=== PATIENT | male | born 1950 | race Caucasian/White ===

== ENCOUNTER → 2020-10-02 08:33 | Outpatient (BNVA) | payer BC, SELFPAY | PROVIDERS: PCP Family Medicine; Visit Provider Urology ==

== ENCOUNTER → 2021-05-03 09:50 | Outpatient (BNVA) | payer BC, SELFPAY | PROVIDERS: PCP Family Medicine; Visit Provider Urology ==

== ENCOUNTER → 2021-11-05 08:48 | Outpatient (BNVA) | payer BC, SELFPAY | PROVIDERS: PCP Family Medicine; Visit Provider Urology | DX: N40.1 Benign prostatic hyperplasia with lower urinary tract symptoms (principal) ==

== ENCOUNTER 2022-05-08 08:39 | Outpatient (AMB) | payer BC, SELFPAY ==
--- NOTE | 2022-05-05 14:07 | A.OFFVIS_ITS ---
Intake Intake Visit Reasons: 6 Month PSA(PSA?) Intake Note: Patient is Present for Telephone PSA Follow Up Urology Medication: Finasteride Blood Thinner: Allergies No Known Allergies Allergy (Verified 05/05/22 14:09) HPI HPI Comments History of Present Illness Details Walter GARDNER is a very pleasant male. They are a patient Dr Randolph. They are seen in the office today for the following urologic conditions. - elevated PSA Telemedicine evaluation 15 minute consultation [employer] arturo Video attempted Gradual drop in PSA on finasteride Has moved from 5.3 to 4.7 Elevated PSA/Abnormal NELLA: He presents for further evaluation of elevated PSA, - PSA fell after infection has resolved - he is happy and understands will need a future check. Current management is finasteride. Laboratory investigations include 2015 2.6 2017 4.6 04/22 - 6.4 06/22 3.6 Free 1.2 - 06/24 4.0, 04/25 5.0, 10/25 5.3, 04/26 4.7 38% Individualized Prostate Cancer Risk Calculator 5-10% high risk, Discussion regarding TRUS biopsy performed, Would like to continue with observation and understands and accepts the risks of a possible delay in diagnosis. Therapeutic plan will be continued surveillance. Gross Hematuria: CT with isointense cyst No evidence of lesion with enhancement Can review imaging in 12m. The patient presents with complaint of gross hematuria throughout urinartion - happened for 4 days and resolved in 09/20. The hematuria has cleared after medication They are experiencing associated symptoms of dysuria No frequency No urgency No Radiographic imaging includes 08/23 , CT scan ? renal lesion 10/21 , renal US ? lesion [facility] Medical History Chronic kidney disease Elevated PSA Gross hematuria Microscopic hematuria Renal cyst, acquired Renal lesion Family History Father No problems noted. Mother No problems noted. Social History Patient Tobacco Use Status: Never used Tobacco Review of Systems Const All systems reviewed & are unremarkable except as noted in HPI and below Reports no additional complaints Resp Reports no additional complaints GI Reports no additional complaints Reports as per HPI Musc Reports no additional complaints Physical Exam Telemedicine evaluation Appropriate responses Regular breathing rate and rhythm HEENT Head: Yes normal to inspection Ears: hearing grossly normal bilaterally Eyes General: appearance normal, both eyes and all related structures Neck Neck: Yes normal visual inspection Chest Chest palpation & inspection: normal inspection of the chest Resp Effort & Inspection: normal respiratory effort and able to speak in complete sentences Assessment & Plan Assessment & Plan (1) BPH w urinary obs/LUTS: Code(s): N40.1 - Benign prostatic hyperplasia with lower urinary tract symptoms; N13.8 - Other obstructive and reflux uropathy (2) Elevated PSA: Code(s): R97.20 - Elevated prostate specific antigen [PSA] Plan Six-month follow-up Patient Instructions: Imaging studies, laboratory and physical exam results were discussed and reviewed in detail. No major barriers to patient understanding were identified. An opportunity to ask questions regarding the treatment plan was provided. All questions were answered. The patient expressed understanding and agreement with the above treatment plan. The patient is aware they should contact our office by phone for worsening of their current condition or the appearance of new urologic symptoms. Compliance is encouraged with any medications and followup testing that is ordered. It is a privilege to participate in the urologic care of your patient. If you have any questions or concerns regarding treatment for the above conditions, or other urologic issues, please do not hesitate to contact me. The office telephon e contact is [phone]. This note is constructed using voice recognition software. While every effort has been made to ensure accuracy hat stock laminating machine operator errors may have been included. Yours sincerely, Dr Cleve Medina MD, [facility] - Urology Providers of Expert, Compassionate Care for the Genitourinary System Telehealth Telehealth Location of provider rendering services: practice address Location of patient: address on file Patient Identification confirmed using: Name, : Yes Telehealth method: voice only Patient verbally consented to treatment: Yes Patient verbally consented to billing insurance company: Yes Patient informed of any privacy concerns related to visit: Yes Coding Level of Care Code Tele Est Pt Level 3 (35012) Diagnoses BPH w urinary obs/LUTS N40.1; N13.8 Elevated PSA R97.20
== END 2023-04-15 11:49 | disposition home or self-care (01) ==
PROVIDERS: PCP Family Medicine; Visit Provider Urology
DX: N40.1 Benign prostatic hyperplasia with lower urinary tract symptoms (principal); N13.8 Other obstructive and reflux uropathy; R97.20 Elevated prostate specific antigen [PSA]
CPT/HCPCS: 99443; 99499

== ENCOUNTER → 2022-05-08 08:39 | Outpatient (BNVA) | payer BC, SELFPAY | PROVIDERS: PCP Family Medicine; Visit Provider Urology | DX: Z13.89 Encounter for screening for other disorder (principal) ==

== ENCOUNTER 2024-05-25 13:55 | Outpatient (AMB) | payer BC, SELFPAY ==
--- NOTE | 2024-05-25 14:08 | A.OFFVIS_ITS ---
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 They are a patient Dr Randolph. They are seen in the office today for the following urologic conditions. - elevated PSA - lower urinary tract symptoms PSA had dropped on finasteride Slight rise in PSA off finasteride Testosterone normal Restart finasteride does have bladder outlet of symptoms NELLA enlarged prostate Discussed importance of vaccines Elevated PSA/Abnormal NELLA: He presents for further evaluation of elevated PSA, - PSA fell after infection has resolved - he is happy and understands will need a future check. Current management is finasteride. Laboratory investigations include 2015 2.6 2017 4.6, 04/22 - 6.4, 06/22 3.6 Free 1.2, 06/24 4.0, 04/25 5.0, 10/25 5.3, 04/26 4.7 38%, 04/28 6.1 T 490 Individualized Prostate Cancer Risk Calculator 5-10% high risk, Discussion regarding TRUS biopsy performed, Would like to continue with observation and understands and accepts the risks of a possible delay in diagnosis. Gross Hematuria: CT with isointense cyst No evidence of lesion with enhancement Can review imaging in 12m. The patient presents with complaint of gross hematuria throughout urinartion - happened for 4 days and resolved in 09/20. The hematuria has cleared after medication They are experiencing associated symptoms of dysuria No frequency No urgency No Radiographic imaging includes 08/23 , CT scan ? renal lesion 10/21 , renal US ? lesion PFSH Medical History Chronic kidney disease Elevated PSA Renal cyst, acquired Gross hematuria Renal lesion Microscopic hematuria Family History Father No problems noted. Mother No problems noted. Social History Patient Tobacco Use Status: Never used Tobacco Review of Systems Const Denies chills and Denies fever(s) Card Reports no additional complaints and Denies syncope Resp Denies cough GI Denies abdominal pain and Denies heartburn Reports as per HPI and Denies change in libido Neuro Denies syncope Psych Denies change in libido Endo Denies change in libido Physical Exam Const General: cooperative, healthy appearing, comfortable and no acute distress Orientation/consciousness: patient oriented x3 HEENT Face and sinus: Yes normal facial exam Mouth: moist mucous membranes Neck Neck: Yes normal visual inspection, Yes full ROM and Yes trachea midline Chest Chest palpation & inspection: normal inspection of the chest Resp Effort & Inspection: normal respiratory effort, able to speak in complete sentences and no respiratory distress GI Inspection: Yes normal to inspection Rectal Exam - Male: Yes normal sphincter tone and Yes prostate normal Male General Exam: Yes normal external exam Penis: normal penis and circumcised Meatus: meatus normal Scrotum: scrotum normal Testes: Testes normal Back/Spine/Pelvis Cervical Spine: normal cervical lordosis Thoracic/Lumbar Spine: thoracic and lumbar spine normal to inspection Skin General skin exam: no rashes or lesions noted Neuro General: patient oriented x3, gait normal, tone normal and moves all extremities Extrem General: Yes normal to inspection and Yes capillary refill normal Assessment & Plan Assessment & Plan (1) Elevated PSA: Code(s): R97.20 - Elevated prostate specific antigen [PSA] Category: Medical (2) BPH w urinary obs/LUTS: Code(s): N40.1 - Benign prostatic hyperplasia with lower urinary tract symptoms; N13.8 - Other obstructive and reflux uropathy Category: Medical Plan Six-month follow-up Orders: Orders Prostate Specific Antigen 6 Months R97.20 - Elevated prostate specific antigen [PSA] US bladder Today R39.12 - Poor urinary stream, R97.20 - Elevated prostate specific antigen [PSA] Medications: Refilled finasteride 5 mg PO DAILY 90 days 90 tabs 1RF C61 - Malignant neoplasm of prostate, N13.8 - Other obstructive and reflux uropathy, N40.1 - Benign prostat ic hyperplasia with lower urinary tract symptoms Patient Instructions: Imaging studies, laboratory and physical exam results were discussed and reviewed in detail. No major barriers to patient understanding were identified. An opportunity to ask questions regarding the treatment plan was provided. All questions were answered. The patient expressed understanding and agreement with the above treatment plan. The patient is aware they should contact our office by phone for worsening of their current condition or the appearance of new urologic symptoms. Compliance is encouraged with any medications and followup testing that is ordered. It is a privilege to participate in the urologic care of your patient. If you have any questions or concerns regarding treatment for the above conditions, or other urologic issues, please do not hesitate to contact me. The office telephone contact is [phone]. This note is constructed using voice recognition software. While every effort has been made to ensure accuracy commercial baker helper errors may have been included. Yours sincerely, Dr Cleve Medina MD, [facility] - Urology Providers of Expert, Compassionate Care for the Genitourinary System Coding Level of Care Code Est Pt Level 4 (97421) Diagnoses Elevated PSA R97.20 BPH w urinary obs/LUTS N40.1; N13.8
== END 2024-05-25 14:56 | disposition home or self-care (01) ==
PROVIDERS: PCP Family Medicine; Visit Provider Urology
DX: R97.20 Elevated prostate specific antigen [PSA] (principal); N40.1 Benign prostatic hyperplasia with lower urinary tract symptoms; N13.8 Other obstructive and reflux uropathy
CPT/HCPCS: 99214

== ENCOUNTER 2024-11-08 13:04 | Outpatient (REF) | payer BC, SELFPAY ==
--- NOTE | ~2024-11-08 | US_ITS ---
EXAMINATION: US BLADDER HISTORY: R39.12 - Poor urinary stream COMPARISON: There are no prior studies for comparison. FINDINGS: Sonographic examination of the urinary bladder was performed before and after voiding. Before voiding, the urinary bladder measured 8.5 x 6.8 x 7.0 cm, for an estimated volume of233 mL. After voiding, the urinary bladder measured 4.8 x 4.9 x 6.4, for an estimated volume of 78 mL. No intrinsic bladder abnormality is identified. Bilateral ureteral jets are not identified. The prostate measures 4.5 x 4.8 x 5.1 cm. US/US bladder IMPRESSION: Post void bladder residual of 78 mL. No intrinsic bladder abnormality is identified. Electronically signed by: Harish Wilson MD 11/08/2024 01:55 PM EDT
--- OUTSIDE RECORDS SUMMARY | 2024-11-08 14:19 | XMS_ITS ---
Author Name [facility] Organization Unknown Problems Problem Status Onset Date Problem Type Date of Resoluti on Source Influenza A active EncounterDiagnosisAct CCT Acute cough active EncounterDiagnosisAct CCT Encounters Encounter Type Encounter Reason Primary Diagnosis Location Date Ambulatory Acute cough Acute cough [facility] 07/09/2023 Care Team Organization Name Specialty Phone Email Start Date End Da te [facility] 07/26/2023 [facility] PCP Interchange Agent 07/26/2023 09/21/2024 [facility] PCP,No Primary Care 07/09/2023 09/21/2024 [facility] NO PCP Primary Care 07/09/2023 07/09/2023
--- OUTSIDE RECORDS SUMMARY | 2024-11-08 14:19 | XMS_ITS | Clinical Summary ---
Author Organization [facility] Address [address] [place] [address] Phone Care Team Providers Care Loader Helper Sorting Yard Name Role Phone Walter Randolph Re DIALLO Primary Care Provider [phone] Allergies No known active allergies Medications cyanocobalamin (VITAMIN B-12) 1000 MCG/ML injection Comments: Filled Date: Nov 23 2011 12:00AM Duration: 60 Active amLODIPine (NORVASC) 2.5 MG tablet TAKE 1 TABLET(2.5 MG) BY MOUTH 1 TIME EACH DAY 30 tablet 11 09/07/2024 Active Active Problems Problem Noted Date Diagnosed Date Psoriatic arthritis 05/20/2021 Cyst of kidney 05/20/2021 Hypertension 11/22/2020 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 11/21/2020 Hyperparathyroidism 11/21/2020 Microscopic hematuria 11/21/2020 Renal stone 11/21/2020 Resolved Problems Problem Noted Date Diagnosed Date Resolved Date Hematuria, not otherwise specified 11/21/2020 05/19/2022 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 11/21/2020 11/22/2020 Encounters Date Type Department Care Team Description 09/07/2024 Refill [facility] [address] [place] [phone] Tomas Morejon MD 09/07/2024 Refill [facility] [address] [place] [phone] Tomas Morejon MD from Last 3 Months Family History Medical History Relation Comments Cancer Father Relation Status Comments Father Mother Social History Tobacco Use Types Packs/Day Years Used Date Smoking Tobacco: Never Smokeless Tobacco: Never Tobacco Cessation:Counseling Given: Not Answered Alcohol Use Standard Drinks/Week Comments Yes 0 (1 standard drink = 0.6 oz pure alcohol) Alcoholic Drinks/day: Occasional social drink Sex and Gender Information Value Date Recorded Sex Assigned at Not on file Legal Sex Male 5:06 PM EST Gender Identity Not on file Sexual Orientation Not on file Last Filed Vital Signs Vital Sign Reading Time Taken Comments Blood Pressure 127/98 05/10/2024 9:22 AM EST Pulse 88 05/10/2024 9:22 AM EST Temperature - - Respiratory Rate - - Oxygen Saturation 97% 05/10/2024 9:22 AM EST Inhaled Oxygen Concentration - - Weight 91.1 kg (200 lb 12.8 oz) 05/10/2024 9:22 AM EST Height 180.3 cm (5' 11 ) 05/10/2024 9:22 AM EST Body Mass Index 28.01 05/10/2024 9:22 AM EST Plan of Treatment Upcoming Encounters Date Type Department Care Team (Late st Contact Info) Description 05/10/2025 9:00 AM EST Office Visit [facility] [address] [phone] Tomas Morejon MD [address] [place] [phone] Health Maintenance Due Date Last Done Comments Pneumococcal Vaccine: 50+ Ye ars (1 of 2 - PCV) 11/12/1971 Colorectal Cancer Screening: Annual FOBT 2001 Colorectal Cancer Screening: Colonoscopy 2001 Colorectal Cancer Screening: Sigmoidoscopy 2001 Influenza Vaccine (Season Ended) 2025 Hepatitis B Vaccine Aged Out No longe r eligible based on patient's age to complete this topic Insurance [facility] Care Teams Loader Helper Sorting Yard Relationship Specialty Start Date End Date Walter Randolph DO [address] [place] [address] PCP - General 07/16/20
--- OUTSIDE RECORDS SUMMARY | 2024-11-08 14:19 | XMS_ITS | Clinical Summary ---
Author Organization [facility] Address [address] [place] [address] Care Team Providers Care Student Liaison Officer Name Role Phone Pcp, No Primary Care Provider Unavailabl e Allergies No known active allergies Medications Cyanocobalamin (B-12 Compliance Injection) 1000 MCG/ML Kit B-12 Compliance Act rich proMETHAZINE-de xtromethorphan (proMETHAZINE-D M) 6.25-15 MG/5ML syrupIndication s:Acute cough,Influenza A Take 5 mL by mouth nightly as needed for cough. 120 mL Active Social History Tobacco Use Types Packs/Day Years Used Date Smoking Tobacco: Never Assessed Sex and Gender Information Value Date Recorded Sex Assigned at Not on file Legal Sex Male 11:39 AM EST Gender Identity Not on file Sexual Orientation Not on file Last Filed Vital Signs Vital Sign Reading Time Taken Comments Blood Pressure 126/74 07/09/2023 11:50 AM EST Pulse 105 07/09/2023 11:50 AM EST Temperature 37.1 ??C (98.8 ??F) 07/09/2023 11:[address] Respiratory Rate - - Oxygen Saturation 96% 07/09/2023 11:50 AM EST Inhaled Oxygen Concentration - - Weight 90.7 kg (200 lb) 07/09/2023 11:50 AM EST Height - - Body Mass Index - - Plan of Treatment Health Maintenance Due Date Last Done Comments Hepatitis C Virus Screening 1950 DTaP/Tdap/Td Vaccines (1 - Tdap) 11/12/1971 Colonoscopy 1997 Pneumococcal Vaccines 50+ (1 of 1 - PCV) 2002 Zoster (Shingles) Vaccine (1 of 2) 2002 Influenza Vaccine 02/04/2024 COVID-19 Vaccine ( - 2023-2 5 season) 2024 RSV Vaccine 60 years and old er and Patients (1 - 1-dose 75+ series) 11/12/2027 Hepatitis B Vaccines Aged Out No long er eligible based on patient's age to complete this topic Insurance [facility] - HMO Care Teams Student Liaison Officer Relationship Specialty Start Date End Date Pcp, No PCP - General General Medicine 07/09/23
--- OUTSIDE RECORDS SUMMARY | 2024-11-08 14:19 | XMS_ITS | Clinical Summary ---
Author Organization [facility] Address [address] [place] [address] Care Team Providers Care Accounting Manager Name Role Phone Unavailable Primary Care Provider Unavailabl e Social History Tobacco Use Types Packs/Day Years Used Date Smoking Tobacco: Never Assessed Sex and Gender Information Value Date Recorded Sex Assigned at Not on file Legal Sex Male 2:32 PM EDT Gender Identity Not on file Sexual Orientation Not on file Plan of Treatment Health Maintenance Due Date Last Done Comments Hepatitis C Screening 1950 DTaP/Tdap/Td (1 - Tdap) 1970 Pneumococcal 50+ years (1 of 1 - PCV) 2002 Zoster (Shingrix) (1 of 2) 2002 COVID-19 Vaccine ( - 2023-2 5 season) 2024 Influenza (Season Ended) 2025 RSV (1 - 1-dose 75+ series) 11/12/2027 Abdominal Aorta Imaging Discontinued HPV Vaccine Aged Out No longer eligi ble based on patient's age to complete this topic Hep A Aged Out No longer eligi ble based on patient's age to complete this topic Hep B Aged Out No longer eligi ble based on patient's age to complete this topic Hib Aged Out No longer eligi ble based on patient's age to complete this topic Meningococcal ACWY Aged Out No longer eligible based on patient's age to complete this topic Zoster (Zostavax) Discontinued
[2024-11-08 15:07] LABS: Prostate Specific Antigen 6.61 ng/mL (<0.05-4.0)
== END 2024-11-08 13:05 | disposition home or self-care (01) ==
LOC: HO.US 13:04
PROVIDERS: PCP Family Medicine; Visit Provider Urology
DX: R39.12 Poor urinary stream (principal); R97.20 Elevated prostate specific antigen [PSA]; Z12.5 Encounter for screening for malignant neoplasm of prostate
CPT/HCPCS: 36415; 76857; 84153

== ENCOUNTER → 2024-11-08 13:07 | Outpatient (BNV) | payer BC, SELFPAY | PROVIDERS: PCP Family Medicine; Visit Provider Radiology Diagnostic Radiology | DX: R39.12 Poor urinary stream (principal) | CPT/HCPCS: 76857 ==

== ENCOUNTER 2024-11-22 14:16 | Outpatient (AMB) | payer BC, SELFPAY ==
--- NOTE | 2024-11-22 14:20 | A.OFFVIS_ITS ---
Intake Visit Reasons: 6m/US/PSA Intake Note: Pt presents to the office today for a 6 month follow up/US/PVR. PVR:30ml Allergies No Known Allergies Allergy (Verified 11/22/24 14:20) HPI Comments Details: Walter GARDNER is a very pleasant male. They are a patient Dr Randolph. They are seen in the office today for the following urologic conditions. - elevated PSA - lower urinary tract symptoms PSA has continued to rise Known large prostate from ultrasound NELLA enlarged prostate Six-month follow-up tele PSA Bladder instability with urgency Good stream Trial Cialis Elevated PSA/Abnormal NELLA: He presents for further evaluation of elevated PSA, - PSA fell after infection has resolved - he is happy and understands will need a future check. Current management is finasteride. Laboratory investigations include 2015 2.6 2017 4.6, 04/22 - 6.4, 06/22 3.6 Free 1.2, 06/24 4.0, 04/25 5.0, 10/25 5.3, 04/26 4.7 38%, 04/28 6.1 T 490, 11/27 6.6 Individualized Prostate Cancer Risk Calculator 5-10% high risk, Discussion regarding TRUS biopsy performed, Would like to continue with observation and understands and accepts the risks of a possible delay in diagnosis. Imaging - bladder US 60 gm Gross Hematuria: CT with isointense cyst No evidence of lesion with enhancement Can review imaging in 12m. The patient presents with complaint of gross hematuria throughout urinartion - happened for 4 days and resolved in 09/20. The hematuria has cleared after medication They are experiencing associated symptoms of dysuria No frequency No urgency No Radiographic imaging includes 08/23 , CT scan ? renal lesion 10/21 , renal US ? lesion [facility] Medical History Chronic kidney disease Elevated PSA Renal cyst, acquired Gross hematuria Renal lesion Microscopic hematuria Family History Father No problems noted. Mother No problems noted. Social History Patient Tobacco Use Status: Never used Tobacco Review of Systems Const Denies chills and Denies fever(s) Card Reports no additional complaints and Denies syncope Resp Denies cough GI Denies abdominal pain and Denies heartburn Reports as per HPI and Denies change in libido Neuro Denies syncope Psych Denies change in libido Endo Denies change in libido Physical Exam Const General: cooperative, healthy appearing, comfortable and no acute distress Orientation/consciousness: patient oriented x3 HEENT Face and sinus: Yes normal facial exam Mouth: moist mucous membranes Neck Neck: Yes normal visual inspection, Yes full ROM and Yes trachea midline Chest Chest palpation & inspection: normal inspection of the chest Resp Effort & Inspection: normal respiratory effort, able to speak in complete sentences and no respiratory distress GI Inspection: Yes normal to inspection Back/Spine/Pelvis Cervical Spine: normal cervical lordosis Thoracic/Lumbar Spine: thoracic and lumbar spine normal to inspection Skin General skin exam: no rashes or lesions noted Neuro General: patient oriented x3, gait normal, tone normal and moves all extremities Extrem General: Yes normal to inspection and Yes capillary refill normal Office Procedures Post Void Residual Post Residual Void Post Void Residual (PVR): 30 [id number]-[id number] Void Residual by ultrasound Results AMB Urinalysis, Automated UA Leukoctes 0 Riana/uL Last Edit by Vida Silverio CMA on 11/22/24 14:27 UA Nitrite Negative Last Edit by Vida Silverio CMA on 11/22/24 14:27 UA Urobilinogen 0.2 mg/dL Last Edit by Vida Silverio CMA on 11/22/24 14:27 UA Protein 15 mg/dL Last Edit by Vida Silverio CMA on 11/22/24 14:27 UA pH 6.0 Last Edit by Vida Silverio CMA on 11/22/24 14:27 UA Blood 0 Marty/uL Last Edit by Vida Silverio CMA on 11/22/24 14:27 UA Specific [place] 1.015 Last Edit by Vida Silverio CMA on 11/22/24 14:27 UA Ketone Negative Last Edit by Vida Silverio CMA on 11/22/24 14:27 UA Bilirubin 0 mg/dL Last Edit by Vida Silverio CMA on 11/22/24 14:27 UA Glucose 0 mg/dL Last Edit by Vida Silverio CMA on 11/22/24 14:27 Results Reviewed Results Reviewed: Laboratory Last Values Urine pH (Auto) 6.0 11/22/24 14:21 Specific [place] (Auto) 1.015 11/22/24 14:21 Urine Protein (Auto) 15 mg/dL 11/22/24 14:21 Glucose (UA)(Auto) 0 mg/dL 11/22/24 14:21 Urine Ketones (Auto) Negative 11/22/24 14:21 Urine Blood (Auto) 0 Marty/uL 11/22/24 14:21 Urine Nitrite (Auto) Negative 11/22/24 14:21 Urine Bilirubin (Auto) 0 mg/dL 11/22/24 14:21 Urine Urobilinogen (Auto) 0.2 mg/dL 11/22/24 14:21 Leukocyte Esterase (Auto) 0 Riana/uL 11/22/24 14:21 Assessment & Plan Assessment & Plan (1) Bladder instability: Code(s): N32.89 - Other specified disorders of bladder Category: Medical (2) Elevated PSA: Code(s): R97.20 - Elevated prostate specific antigen [PSA] Category: Medical (3) BPH w urinary obs/LUTS: Code(s): N40.1 - Benign prostatic hyperplasia with lower urinary tract symptoms; N13.8 - Other obstructive and reflux uropathy Category: Medical Plan Trial tadalafil bladder instability Six-month follow-up PSA Orders: Orders AMB Urinalysis Automated Today N13.8 - Other obstructive and reflux uropathy, N40.1 - Benign prostatic hyperplasia with lower urinary tract symptoms AMB Post Void Residual by ultrasound Today N13.8 - Other obstructive and reflux uropathy, N40.1 - Benign prostatic hyperplasia with lower urinary tract sympt oms PSA,Total (Free>4and<10) 6 Months R97.20 - Elevated prostate specific antigen [PSA] Medications: New tadalafil [id number] [facility] [id number] Member [id number] 5 mg PO DAILY 30 tabs 1RF bladder instability 30 days N32.89 - Other specified disorders of bladder Patient Instructions: This note is constructed using voice recognition software. While every effort has been made to ensure accuracy tube fitter errors may have been included. Imaging studies, laboratory and physical exam results were discussed and reviewed in detail. No major barriers to patient understanding were identified. An opportunity to ask questions regarding the treatment plan was provided. All questions were answered. The patient expressed understanding and agreement with the above treatment plan. The patient is aware they should contact our office by phone for worsening of their current condition or the appearance of new urologic symptoms. Compliance is encouraged with any medications and followup testing that is ordered. It is a privilege to participate in the urologic care of your patient. If you have any questions or concerns regarding treatment for the above conditions, or other urologic issues, please do not hesitate to contact me. The office telephone contact is [phone]. Sincerely, Dr Cleve Medina MD, [facility] - Urology Compassionate Specialist Care for the Genitourinary System Coding Level of Care Code Est Pt Level 4 (68516) Diagnoses Bladder instability N32.89 Elevated PSA R97.20 BPH w urinary obs/LUTS N40.1; N13.8 CPT Codes Post Residual Void - PVR CPT Code: 56280-[id number] Void Residual by ultrasound ([id number])
--- OUTSIDE RECORDS SUMMARY | 2024-11-22 15:42 | XMS_ITS | Clinical Summary ---
Author Organization [facility] Address [address] [place] [address] Care Team Providers Care Pre Planning Advisor Name Role Phone Unavailable Primary Care Provider [...] ( - 2023-2 5 season) 2024 Influenza (#1) 2024 RSV (1 - 1-dose 75+ series) 11/12/2027 [...]
--- OUTSIDE RECORDS SUMMARY | 2024-11-22 15:42 | XMS_ITS | Clinical Summary ---
Author Organization [facility] Address [address] [place] [address] Care Team Providers Care Vp Production Name Role Phone Pcp, No Primary Care [...] Zoster (Shingles) Vaccine (1 of 2) 2002 COVID-19 Vaccine (2023-2 5 season) 2024 Influenza Vaccine 02/03/2025 RSV Vaccine 60 years and old er and Patients (1 - 1-dose 75+ series) 11/12/2027 Hepatitis B Vaccines Aged Out No long er eligible based on patient's age to complete this topic Insurance [facility] - HMO Care Teams Vp Production Relationship Specialty Start Date End Date Pcp, No PCP - General General Medicine 07/09/23
--- OUTSIDE RECORDS SUMMARY | 2024-11-22 15:42 | XMS_ITS | Clinical Summary ---
Author Organization [facility] Address [address] [place] [address] [address] [place] [phone] Phone Care Team Providers Care Greens Planter Name Role Phone Walter Randolph Re DIALLO Primary Care Provider Allergies No known active allergies Medications cyanocobalamin [...] [place] [address] [place] [phone] Tomas Morejon MD 09/07/2024 Refill [facility] [address] [place] [phone] Tomas Morejon MD from Last 3 Months [...] Office Visit [facility] [address] [phone] Tomas Morejon MD [address] [place] [phone] Health Maintenance Due Date Last Done Comments Pneumococcal Vaccine: 50+ Ye ars (1 of 2 - PCV) 11/12/1971 Colorectal Cancer Screening: Annual FOBT 2001 Colorectal Cancer Screening: Colonoscopy 2001 Colorectal Cancer Screening: Sigmoidoscopy 2001 Influenza Vaccine (Season Ended) 2025 Hepatitis B Vaccine Aged Out No longe r eligible based on patient's age to complete this topic Insurance [facility] Care Teams Greens Planter Relationship Specialty Start Date End Date Walter Randolph DO [address] [place] [address] PCP - General 07/16/20
== END 2024-11-22 14:48 | disposition home or self-care (01) ==
LOC: HO.HUSH 14:16
PROVIDERS: PCP Family Medicine; Visit Provider Urology
DX: N32.89 Other specified disorders of bladder (principal); R97.20 Elevated prostate specific antigen [PSA]; N40.1 Benign prostatic hyperplasia with lower urinary tract symptoms; N13.8 Other obstructive and reflux uropathy
CPT/HCPCS: 99214

== ENCOUNTER → 2024-11-22 14:16 | Outpatient (BNVA) | payer BC, SELFPAY | PROVIDERS: PCP Family Medicine; Visit Provider Urology | DX: N13.8 Other obstructive and reflux uropathy (principal); N40.1 Benign prostatic hyperplasia with lower urinary tract symptoms | CPT/HCPCS: 51798; 81003 ==

== ENCOUNTER 2024-12-03 11:45 | Emergency (ER) | payer BC, SELFPAY ==
[2024-12-03 11:47] VITALS: BP 163/78; PULSE 64; RESP 18; TEMP 36.1; O2SAT 96; BMI 29.2
--- NOTE | 2024-12-03 11:47 | ED_ITS ---
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 Patient states the pain is located over his left lower back and does not radiate. He describes it as sharp, 7/10 in severity and describes his chronic back pain to be a 3 or 4/10 in severity. It improve with acetaminophen at home. There are no clear mitigating or exacerbating factors. He denies fevers, chills, recent procedures, cancer history, anticoagulation use, IV drug use, urinary retention, urinary or fecal incontinence, saddle anesthesia, new numbness or weakness of his legs or any inability to walk or difficulty walking. He denies syncopal or presyncopal episodes. He has not had any lightheadedness or exertional symptoms. He denies any other symptoms today including new urinary urgency or frequency, dysuria, hematuria or abdominal pain. Related Data Home Medications ?Medication ?Instructions ?Recorded ?Confirmed mecobalamin (vitamin B12) 1,000 1,000 mcg PO DAILY 10/02/20 mcg chewable tablet cyanocobalamin (vitamin B-12) 1,000 mcg IM 05/05/22 1,000 mcg/mL injection solution (Dodex) Previous Rx's ?Medication ?Instructions ?Recorded finasteride 5 mg tablet 5 mg PO DAILY 90 days #90 tabs 05/25/24 tadalafil 5 mg tablet 5 mg PO DAILY bladder instability 11/22/24 30 days #30 tabs lidocaine 5 % topical patch 1 patch topical DAILY #30 ea 12/03/24 Allergies Allergy/AdvReac Type Severity Reaction Status Date / Time No Known Allergies Allergy Verified 12/03/24 11:50 Review of Systems 2 Review of Systems: Yes all other systems are reviewed and are negative PMFSH Past Medical History Medical History Chronic kidney disease Elevated PSA Renal cyst, acquired Gross hematuria Renal lesion Microscopic hematuria Family History Family History Father No problems noted. Mother No problems noted. Social History Social History Patient Tobacco Use Status: Never used Tobacco Advance Directives: No Advance Directives Information Provided: Yes Physical Exam ED Vital Signs: Vital Signs - 24 hr 12/03/24 11:47 Temperature 97.0 F Pulse Rate 64 Respiratory Rate 18 Blood Pressure 163/78 H Pulse Oximetry 96 BMI result Body Mass Index 29.2 Constitutional: Alert, oriented, speaking in full sentences HEENT: Normocephalic, atraumatic. Moist mucous membranes Eyes: PERRL, EOMI Neck: Supple, nontender Chest: No chest wall tenderness Respiratory: Lungs clear to auscultation, no increased work of breathing Cardio: Regular rate and rhythm, no murmur, 2+ radial , PT and DP pulses symmetrically GI: Soft, nondistended, nontender Back: Normal range of motion, No midline or paraspinal tenderness to palpation. Skin: No rash, no lesions Neuro: Alert and oriented to person, place and time, moves all 4 extremities, no focal deficits, 5/5 strength in all muscle groups of the bilateral lower extremities, sensation fully intact, 1+ symmetrical patellar reflexes Extremities: No swelling or tenderness, full range of motion, unable to elicit pain with active and passive range of motion of the lower extremities. Negative straight leg or contralateral leg raise. Psych: Calm, alert and cooperative, appropriate behavior Course Course Course Narrative: RME performed by Smitha Barraza PA-C. Patient is a 74 year old assigned male at presenting to the emergency department with left low sided back pain over the last couple days. Patient states that over the last few days he has been having left sided low back pain. Detailed physical exam and review of systems are deferred to the leather etcher. EKG and labs ordered. Patient placed back in the waiting room pending room availability and results. Medical Decision Making Medical Decision Making [facility] Narrative: Patient here with low back pain. I do not suspect epidural abscess- no fevers, no recent instrumentation, no IVDA. I do not suspect fracture as there is no history of trauma, no history of malignancy, no chronic steroid use. I do not suspect epidural hematoma- again, no trauma, no anticoagulation. Cauda equina / cord compression is unlikely given ability to ambulate, lack of saddle anesthesia, ability to maintain bowel and bladder function. No signs and symptoms to suggest aortic dissection or ruptured AAA. Patient has had several days of pain And no manifestations of vascular compromise. At this point we will treat symptomatically for pain and ensure good follow up outpatient. Additionally, the patient has no concerning findings of work and urinalysis. I do not suspect prostatitis. Provided lidocaine patch and encouraged acetaminophen and continuation of Celebrex at home. Return precautions given to return immediately to the emergency department if there are any new neurologic symptoms. Patient and voice understanding. Admission/Observation Consideration of admission/observation: Escalation of care including admission/observation considered Lab Data MDM Lab Attestation statement: I reviewed the patient's lab results. 12/03/24 12:23 12/03/24 12:23 Labs: Lab Results 12/03/24 Range/Units 12:23 WBC 5.5 (4.8-10.8) X10*3/uL RBC 5.09 (4.60-5.80) X10*6/uL Hgb 15.1 (14.0-18.0) g/dl Hct 42.5 (42.0-52.0) % MCV 83.5 (80.0-98.0) fL MCH 29.7 (27.0-33.0) pg MCHC 35.5 (31.0-36.0) g/dl RDW 13.1 (11.0-16.0) % Plt Count 157 L (160-400) X10*3/uL MPV 8.7 L (9.4-12.4) fL Immature Gran % (Auto) 0.4 (0.0-0.4) % Neut % (Auto) 62.6 (45-73) % Lymph % (Auto) 21.4 (20-40) % [place] % (Auto) 8.9 (2-11) % Eos % (Auto) 6.2 H (0-4) % Baso % (Auto) 0.5 (0-2) % Lymph # (Auto) 1.2 (1.2-4.9) X10*3/uL [place] # (Auto) 0.5 (0.1-1.2) X10*3/uL Eos # (Auto) 0.3 (0.0-0.4) X10*3/uL Baso # (Auto) 0.0 (0.0-0.2) X10*3/uL Abs Immat Gran (auto) 0.02 (0.00-0.03) X10*3/uL Absolute Neuts (auto) 3.5 (2.0-8.3) x10*3/uL Absolute Nucleated RBC 0.000 (0.0-0.012) X10*3/uL Nucleated RBC % (auto) 0.0 (0.0-0.2) /100WBC Urine Color Yellow Urine Appearance Clear Urine pH 6.5 (5.0-9.0) Ur Specific [place] 1.010 (1.005-1.025) Urine Protein Negative (Neg-Trace) mg/dL Urine Glucose (UA) Negative (Negative) mg/dL Urine Ketones Negative (Negative) mg/dL Urine Blood Negative (Negative) Urine Nitrite Negative (Negative) Ur Leukocyte Esterase Negative (Negative) Independent Interpretation I performed an independent interpretation of an: EKG Interpretation: borderline sinus bradycardia at 59 beats per minute, normal axis, unremarkable intervals, no diagnostic ST or T-wave abnormalities, no prior for comparison. Discharge Plan Discharge Clinical Impression: Low back pain Qualifiers: Chronicity: acute Back pain laterality: left Sciatica presence: without sciatica Qualified Code(s): M54.50 - Low back pain, unspecified Patient Disposition: Home, Self-Care Instructions: Acute Low Back Pain (ED) Additional Instructions: continue Celebrex daily as prescribed. Also take acetaminophen 1000 mg every 8 hours for the next week or 2 You can apply a lidocaine patch once daily. If you find relief with heating pads you can use this as well. Return to the emergency department immediately if you develop ANY new or worsening symptoms, especially increased pain, new difficulty walking, new lightheaded dizziness or passing out episodes, losing control of your bladder or bowel movements, fevers (over 100.4 F), numbness in your groin/genital area, or numbness/tingling/weakness of the extremities.? Thank you for choosing us for your care. Prescriptions: New lidocaine 5 % adhesive patch,medicated 1 patch topical DAILY Qty: 30 0RF Rx Instructions: leave on most painful area for up to 12 hrs No Action mecobalamin (vitamin B12) 1,000 mcg tablet,chewable 1,000 mcg PO DAILY cyanocobalamin (vitamin B-12) [Dodex] 1,000 mcg/mL solution 1,000 mcg IM finasteride 5 mg tablet 5 mg PO DAILY 90 Days Qty: 90 1RF tadalafil 5 mg tablet 5 mg PO DAILY 30 Days Qty: 30 1RF Rx Instructions: [id number] [facility] [id number] Member [id number] Print Language: Vietnamese
--- NOTE | 2024-12-03 11:49 | ECG_ITS ---
Test Reason : LOWER BACK PAIN Blood Pressure : */* mmHG Vent. Rate : 59 BPM Atrial Rate : 59 BPM P-R Int : 190 ms QRS Dur : 98 ms QT Int : 386 ms P-R-T Axes : 63 11 0 degrees QTcB Int : 382 ms Sinus bradycardia Otherwise normal ECG No previous ECGs available Referred By: Smitha Barraza Electronically Signed By: NEGIN TURK MD
[2024-12-03 12:31] LABS: MANUAL DIFF FLAG NO
[2024-12-03 12:33] LABS: Appearance Urine Clear; Basophils Percent Auto 0.5 % (0-2); Color Urine Yellow; Eosinophils Absolute Auto 0.3 X10*3/uL (0.0-0.4); Eosinophils Percent Auto 6.2 % (0-4); Glucose Urine UA Negative (Negative); Hematocrit 42.5 % (42.0-52.0); Hemoglobin 15.1 g/dl (14.0-18.0); Imm Gran Abs Auto 0.02 X10*3/uL (0.00-0.03); Imm Gran Pct Auto 0.4 % (0.0-0.4); Leukocyte Esterase Urine Negative (Negative); Lymphocytes Absolute Auto 1.2 X10*3/uL (1.2-4.9); Lymphocytes Percent Auto 21.4 % (20-40); Mean Corpuscular HGB Conc 35.5 g/dl (31.0-36.0); Mean Corpuscular Hemoglobin 29.7 pg (27.0-33.0); Mean Corpuscular Volume 83.5 fL (80.0-98.0); Mean Platelet Volume 8.7 fL (9.4-12.4); Monocytes Absolute Auto 0.5 X10*3/uL (0.1-1.2); Monocytes Percent Auto 8.9 % (2-11); Neutrophils Absolute Auto 3.5 x10*3/uL (2.0-8.3); Neutrophils Percent Auto 62.6 % (45-73); Nitrite Urine Negative (Negative); PH 6.5 (5.0-9.0); Platelet Count 157 X10*3/uL (160-400); Red Blood Count 5.09 X10*6/uL (4.60-5.80); Red Cell Distribution Width 13.1 % (11.0-16.0); Urine Blood Negative (Negative); Urine Ketones Negative (Negative); Urine Protein Negative (Neg-Trace); White Blood Count 5.5 X10*3/uL (4.8-10.8)
[2024-12-03 12:38] LABS: Prothrombin Time 11.2 SEC (10.9-12.4)
[2024-12-03 12:52] LABS: Alanine Aminotransferase 17 U/L (0-40); Albumin Level 4.5 g/dL (3.5-5.0); Alkaline Phosphatase 92 U/L (39-117); Anion Gap 10 (12-20); Aspartate Amino Transferase 29 U/L (5-37); Bilirubin Total 0.6 mg/dL (0.0-1.0); Blood Urea Nitrogen 17 mg/dL (9-16); Calcium 9.9 mg/dL (8.4-10.2); Carbon Dioxide 25 mmol/L (22-29); Chloride 109 mmol/L (96-108); Creatinine Clr Calc Pharmacy 55.6; Estimated Glomerular Filt Rate 51; Glucose Random 101 mg/dL (60-115); Magnesium 1.9 mg/dL (1.6-2.6); Potassium 4.5 mmol/L (3.3-5.1); Sodium 139 mmol/L (135-145); Total Protein 7.3 g/dL (6.5-8.0)
[2024-12-03 13:02] LABS: Troponin-I High Sensitivity < 2.7 ng/L (<3.5-35.0)
[2024-12-03 13:12] LABS: Influenza A PCR NEGATIVE (Negative); Influenza B PCR NEGATIVE (Negative); Resp Syncy Virus RNA Qual PCR NEGATIVE (Negative); SARS COV2 PCR INHOUSE NEGATIVE (Negative)
[2024-12-03] MEDS: Lidocaine 4 % Patch ADH..PATCH 1 PATCH TRANSDERMA (13:22)
[2024-12-03 13:25] VITALS: BP 163/78; PULSE 64; RESP 18; TEMP 36.1; O2SAT 96
== END 2024-12-03 13:29 | disposition home or self-care (01) ==
PROVIDERS: Physician Assistant Medical; Emergency Provider Emergency Medicine; PCP Family Medicine
DX: M54.50 Low back pain, unspecified (principal); Z03.818 Encounter for observation for suspected exposure to other biological agents ruled out; N18.9 Chronic kidney disease, unspecified
CPT/HCPCS: 0241U; 80053; 81003; 83735; 84484; 85025; 85610; 93005; 99283

== ENCOUNTER → 2024-12-03 11:49 | Outpatient (BNV) | payer BC, SELFPAY | PROVIDERS: Emergency Provider Emergency Medicine; PCP Family Medicine; Visit Provider Internal Medicine Cardiovascular Disease | DX: R00.1 Bradycardia, unspecified (principal) | CPT/HCPCS: 93010 ==

== ENCOUNTER 2025-01-07 08:29 | Emergency (ER) | payer BC, SELFPAY ==
--- NOTE | ~2025-01-07 | XR_ITS ---
CLINICAL HISTORY: overlying abrasions, pain to dorsal foot 3 view left foot Comparison: None provided Findings: Moderately severe hallux valgus with associated degenerative change. Chronic , possibly congenital findings, noted along the phalanges of the 2nd through 5th toes. Faint lucency questioned along the distal left 5th metatarsal. Impression: Prominent chronic findings. Questionable very faint lucency of the head of the left 5th metatarsal. Correlation with focal tenderness in this region. This document has been electronically signed by: Adriel Mars MD on 01/07/2025 09:44:33
[2025-01-07 08:38] VITALS: BP 135/76; PULSE 59; RESP 18; TEMP 36.4; O2SAT 98; BMI 28.9
--- NOTE | 2025-01-07 09:00 | ED_ITS ---
HPI - Extremity Injury (Lower) General Chief Complaint: Extremity Injury, Lower Stated Complaint: l foot infection Time Seen by Provider: 01/07/25 09:00 Source: patient Mode of arrival: ambulatory Limitations: no limitations History of Present Illness ED Provider: KHALIDA YOON PA-C HPI Narrative: 74 year old male with pmhx significant for CKD, elevated PSA, renal cyst, psoriatic arthritis, bilateral lower extremity neuropathy presents to the ED today for evaluation of left foot pain.He reports noticing an abrasion to the top of his left foot 2 days ago. He does not recall how he sustained this. He states he may have scratched the foot while putting on his boots. He also has a dog at home. He is unsure if his dog scratched him at some point. He is now having a throbbing pain along the top of the foot. This has been making it difficult for him to sleep at night. He has trialed 500 mg Tylenol with minimal improvement. He has been elevating the foot as well. Denies history of similar. Denies any pain to the right foot. No known trauma/ injury. He reports concern that the area may be infected. He has been applying a topical antibiotic ointment to the area. Denies fever, chills. Related Data Home Medications ?Medication ?Instructions ?Recorded ?Confirmed mecobalamin (vitamin B12) 1,000 1,000 mcg PO DAILY mcg chewable tablet cyanocobalamin (vitamin B-12) 1,000 mcg IM 05/05/22 1,000 mcg/mL injection solution (Dodex) Previous Rx's ?Medication ?Instructions ?Recorded tadalafil 5 mg tablet 5 mg PO DAILY bladder instab ility 11/22/24 30 days #30 tabs lidocaine 5 % topical patch 1 patch topical DAILY #30 ea 12/03/24 cephalexin 500 mg capsule 500 mg PO Q8H 7 days #21 cap s 01/07/25 finasteride 5 mg tablet 5 mg PO DAILY 90 days #90 ta bs 01/10/25 Allergies Allergy/AdvReac Type Severity Reaction Status Date / Time No Known Allergies Allergy Verified 01/07/25 08:40 Review of Systems 2 Review of Systems: Constitutional: No fever, chills, fatigue, night sweats, weight changes ENT/Mouth: No ear pain, hearing loss, nasal congestion, sinus pain, rhinorrhea, sore throat Eyes: No eye pain, swelling, redness, vision changes, discharge Cardio: No chest pain, palpitations, ANDERSON, orthopnea, peripheral edema Pulm: No SOB, cough, sputum, wheezing, dyspnea, hemoptysis GI: No nausea, vomiting, hematemesis, abdominal pain, diarrhea, constipation, hematochezia, melena : No irregular bleeding, dysuria, frequency, urgency, hesitancy, hematuria, flank pain, urinary flow changes, urinary incontinence or retention MSK: No back pain, neck pain, joint pain, myalgias Skin: No lesions, rashes, +abrasion Neuro: No weakness, numbness, paresthesias, LOC, dizziness, headache Psych: No anxiety/panic, depression, SI/HI, AH/VH All other systems reviewed and are negative. FORMERLY [facility], 1928–1983 Past Medical History Attestation statement: The following information was validated with the patient. Source: old records reviewed, obtained from family and nursing notes reviewed Medical History Chronic kidney disease Elevated PSA Renal cyst, acquired Gross hematuria Renal lesion Microscopic hematuria Family History Family History Father No problems noted. Mother No problems noted. Social History Social History Patient Tobacco Use Status: Never used Tobacco Physical Exam 2 Vital Signs: Vital Signs: Last Vital Signs Temp 97.6 F 01/07/25 10:42 Pulse 50 01/07/25 10:42 Resp 18 01/07/25 10:42 BP 129/76 01/07/25 10:42 Pulse Ox 98 01/07/25 10:42 O2 Del Method Room Air 01/07/25 10:42 BMI result Body Mass Index 28.9 vital signs stable, afebrile General: Well appearing, in no acute distress. Skin: Warm, dry, intact. No rashes or lesions. Head: Normocephalic, atraumatic. EENT: Hearing is intact b/l. Conjunctiva clear. PERRLA. EOM intact. Moist mucous membranes.? Cardiac: Chest wall symmetric. RRR Lungs: Normal respiratory effort without accessory muscle use. CTA bilaterally Ext: +see photo below. superficial linear abrasions noted to dorsal aspect of left foot. minimal surrounding erythema. No pustules. No streaking. No sloughing. Spares soles and web spaces. ttp. no warmth, crepitus. decreased sensation to b/l feet which is his baseline neuropathy. dp pulse intact. Neuro: AOx3. Normal speech. CN 2-12 grossly intact. Strength 5/5 intact throughout. No saddle anesthesia. Sensation intact to light touch. NV intact distally. Ambulating with steady gait. Psych: Appropriate mood and affect. Responds appropriately to questions. Course Course Course Narrative: X-ray foot showing chronic degenerative changes. Questionable very faint lucency of the head of the left 5th metatarsal, there is no point tenderness in this region on exam. > unclear etiology for patient's symptoms. It appears to be an abrasion with surrounding erythema. Will cover with antibiotics for developing cellulitis. Patient agreeable. Patient has remained stable throughout ED visit today. Discussed worrisome signs and symptoms and when to return to the ED. All questions answered at this time. Patient is agreeable with disposition and stable for discharge. Medical Decision Making Medical Decision Making MDM Narrative: 74 year old male with pmhx significant for CKD, elevated PSA, renal cyst, psoriatic arthritis, bilateral lower extremity neuropathy presents to the ED today for evaluation of left foot pain. vital signs stable. afebrile. he is well appearing and in NAD. on exam of LLE, superficial linear abrasions noted to dorsal aspect of left foot. minimal surrounding erythema. No pustules. No streaking. No sloughing. Spares soles and web spaces. ttp. no warmth, crepitus. decreased sensation to b/l feet which is his baseline neuropathy. dp pulse intact. Plan for xrays and disposition. Differential Diagnosis Differential Diagnoses: The differential diagnosis associated with the presentation includes abrasion, cellulitis, fracture, gout, pseudo gout, ostemyelitis, psoriatic arthritis, arthritis Admission/Observation not indicated. Independent Interpretation I performed an independent interpretation of an: Plain X-Ray Interpretation: xr left foot w/o fracture Radiology Impression Discussion of test interpretation with radiology: I have reviewed the radiologist's reading. Radiologist Impression: Date of Service: 01/07/25 Procedure(s): XR foot LT min 3V Accession Number(s): [id number] cc: Physician,Unknown ; Khalida Yoon~ CLINICAL HISTORY: overlying abrasions, pain to dorsal foot 3 view left foot Comparison: None provided Findings: Moderately severe hallux valgus with associated degenerative change. Chronic , possibly congenital findings, noted along the phalanges of the 2nd through 5th toes. Faint lucency questioned along the distal left 5th metatarsal. Impression: Prominent chronic findings. Questionable very faint lucency of the head of the left 5th metatarsal. Correlation with focal tenderness in this region. This document has been electronically signed by: Adriel Mars MD on 01/07/2025 09:44:33 Independent Historian Clinical information obtained from an independent historian. History obtained from or confirmed by: Spouse External Record Review External record reviewed: Inpatient record Prescription Management I considered prescription management with: Pain Medication and Antibiotic Social Determinants Patient?s care significantly limited by Social Determinants of Health including: Other Social Determinant of Health Critical Care Time Critical Care Time Critical Care Time: No Discharge Plan Discharge Clinical Impression: Cellulitis Patient Disposition: Home, Self-Care Instructions: Cellulitis (ED) Additional Instructions: Your xrays are reassuring. At this time, there is no clear etiology for your symptoms. Your physical exam is concerning for an abrasion to your left foot. We will cover with antibiotics. Keflex is an antibiotic that has been sent to your pharmacy. Take this 3 times daily for the next 5 days. You may take 1000mg Tylenol every 6 hours for pain control. Apply an ice pack for comfort. Follow up with your PCP. Return with any new or worsening symtpoms. In the case of an emergency call 911 Prescriptions: New cephalexin 500 mg capsule 500 mg PO Q8H 7 Days Qty: 21 0RF No Action finasteride 5 mg tablet 5 mg PO DAILY 90 Days Qty: 90 1RF lidocaine 5 % adhesive patch,medicated 1 patch topical DAILY Qty: 30 0RF Rx Instructions: leave on most painful area for up to 12 hrs mecobalamin (vitamin B12) 1,000 mcg tablet,chewable 1,000 mcg PO DAILY cyanocobalamin (vitamin B-12) [Dodex] 1,000 mcg/mL solution 1,000 mcg IM tadalafil 5 mg tablet 5 mg PO DAILY 30 Days Qty: 30 1RF Rx Instructions: [id number] [facility] [id number] Member [id number] Referrals: Physician,Unknown J [Primary Care Provider, Medical] Interventions: ED Discharge Assessment Last Done: 01/07/25 10:42 Discharge Date/Time: 01/07/25 10:42 Print Language: Chadian
[2025-01-07 10:31] VITALS: BP 129/76; PULSE 50; RESP 18; TEMP 36.4; O2SAT 98
[2025-01-07 10:42] VITALS: BP 129/76; PULSE 50; RESP 18; TEMP 36.4; O2SAT 98
== END 2025-01-07 10:42 | disposition home or self-care (01) ==
PROVIDERS: Emergency Provider Emergency Medicine
DX: M79.672 Pain in left foot (principal); N18.9 Chronic kidney disease, unspecified; N40.1 Benign prostatic hyperplasia with lower urinary tract symptoms; L03.116 Cellulitis of left lower limb; G62.9 Polyneuropathy, unspecified
CPT/HCPCS: 73630; 99283

== ENCOUNTER → 2025-01-07 09:22 | Outpatient (BNV) | payer BC, SELFPAY | PROVIDERS: Emergency Provider Emergency Medicine; Visit Provider Radiology Vascular & Interventional Radiology | DX: M79.672 Pain in left foot (principal) | CPT/HCPCS: 73630 ==

== ENCOUNTER 2025-05-26 13:20 | Outpatient (AMB) | payer BC, SELFPAY ==
--- NOTE | 2025-05-26 13:26 | MHC.OFFVIS ---
Intake Visit Reasons: 6M PSA/PVR(SET) Intake Note: Patient Is Present for PSA/PVR Urology Med: Finasteride, Tadalafil Antibiotic Allergy: None Blood Thinner: None PVR: 137ml Sprayer Leather Required: No Accompanied by: Self / Same As Patient Allergies No Known Allergies Allergy (Verified 05/26/25 13:36) HPI Comments Details: Walter GARDNER is a very pleasant male. They are a patient Dr Randolph. They are seen in the office today for the following urologic conditions. - elevated PSA - lower urinary tract symptoms Follow-up trial tadalafil PSA 7.0 repeat - had been higher earlier after bike riding and coffee Continue finasteride Check testosterone in six-month Continue tadalafil daily Elevated PSA/Abnormal NELLA: He presents for further evaluation of elevated PSA, - PSA fell after infection has resolved - he is happy and understands will need a future check. Current management is finasteride. Laboratory investigations include 2015 2.6 2017 4.6, 04/22 - 6.4, 06/22 3.6 Free 1.2, 06/24 4.0, 04/25 5.0, 10/25 5.3, 04/26 4.7 38%, 04/28 6.1 T 490, 11/27 6.6, 04/29 8.3, 05/30 7.0 Imaging - bladder US 60 gm Gross Hematuria: CT with isointense cyst No evidence of lesion with enhancement Can review imaging in 12m. The patient presents with complaint of gross hematuria throughout urinartion - happened for 4 days and resolved in 09/20. The hematuria has cleared after medication They are experiencing associated symptoms of dysuria No frequency No urgency No Radiographic imaging includes 08/23 , CT scan ? renal lesion 10/21 , renal US ? lesion PFSH Medical History Chronic kidney disease Elevated PSA Renal cyst, acquired Gross hematuria Renal lesion Microscopic hematuria Family History Father No problems noted. Mother No problems noted. Social History Patient Tobacco Use Status: Never used Tobacco Review of Systems Const Denies chills and Denies fever(s) Card Reports no additional complaints and Denies syncope Resp Denies cough GI Denies abdominal pain and Denies heartburn Reports as per HPI and Denies change in libido Neuro Denies syncope Psych Denies change in libido Endo Denies change in libido Physical Exam Const General: cooperative, healthy appearing, comfortable and no acute distress Orientation/consciousness: patient oriented x3 HEENT Face and sinus: Yes normal facial exam Mouth: moist mucous membranes Neck Neck: Yes normal visual inspection, Yes full ROM and Yes trachea midline Chest Chest palpation & inspection: normal inspection of the chest Resp Effort & Inspection: normal respiratory effort, able to speak in complete sentences and no respiratory distress GI Inspection: Yes normal to inspection Back/Spine/Pelvis Cervical Spine: normal cervical lordosis Thoracic/Lumbar Spine: thoracic and lumbar spine normal to inspection Skin General skin exam: no rashes or lesions noted Neuro General: patient oriented x3, gait normal, tone normal and moves all extremities Extrem General: Yes normal to inspection and Yes capillary refill normal Office Procedures Post Void Residual Post Residual Void Post Void Residual (PVR): 137 [id number] Void Residual by ultrasound Assessment & Plan Assessment & Plan (1) Elevated PSA: Code(s): R97.20 - Elevated prostate specific antigen [PSA] Category: Medical (2) BPH w urinary obs/LUTS: Code(s): N40.1 - Benign prostatic hyperplasia with lower urinary tract symptoms; N13.8 - Other obstructive and reflux uropathy Category: Medical (3) Bladder instability: Code(s): N32.89 - Other specified disorders of bladder Category: Medical (4) Erectile dysfunction due to arterial insufficiency: Code(s): N52.01 - Erectile dysfunction due to arterial insufficiency Category: Medical Plan Six-month follow-up PSA and testosterone Orders: Orders AMB Post Void Residual by ultrasound Today N13.8 - Other obstructive and reflux uropathy, N40.1 - Benign prostatic hyperplasia with lower urinary tract symptoms Testosterone, Total 5 Months R97.20 - Elevated prostate specific antigen [PSA] PSA,Total (Free>4and<10) 5 Months R97.20 - Elevated prostate specific antigen [PSA] Medications: Changed From tadalafil [id number] [facility] [id number] Member [id number] 5 mg PO DAILY 30 days 30 tabs 1RF bladder instability N32.89 - Other specified disorders of bladder To tadalafil [id number] [id number] Member [id number] 5 mg PO DAILY 90 tabs 1RF bladder instability 90 days N32.89 - Other specified disorders of bladder Refilled finasteride 5 mg PO DAILY 90 tabs 1RF 90 days C61 - Malignant neoplasm of prostate, N13.8 - Other obstructive and reflux uropathy, N40.1 - Benign prostatic hyperplasia with lower urinary tract symptoms Patient Instructions: This note is constructed using voice recognition software. While every effort has been made to ensure accuracy tire and lube technician errors may have been included. Imaging studies, laboratory and physical exam results were discussed and reviewed in detail. No major barriers to patient understanding were identified. An opportunity to ask questions regarding the treatment plan was provided. All questions were answered. The patient expressed understanding and agreement with the above treatment plan. The patient is aware they should contact our office by phone for worsening of their current condition or the appearance of new urologic symptoms. Compliance is encouraged with any medications and followup testing that is ordered. It is a privilege to participate in the urologic care of your patient. If you have any questions or concerns regarding treatment for the above conditions, or other urologic issues, please do not hesitate to contact me. The office telephone contact is [phone]. Sincerely, Dr Cleve Medina MD, ORI [facility] - Urology Compassionate Specialist Care for the Genitourinary System Coding Level of Care Code Est Pt Level 4 (62842) Diagnoses Elevated PSA R97.20 BPH w urinary obs/LUTS N40.1; N13.8 Bladder instability N32.89 Erectile dysfunction due to arterial insufficiency N52.01 CPT Codes Post Residual Void - PVR CPT Code: 49278-[id number] Void Residual by ultrasound ([id number])
--- OUTSIDE RECORDS SUMMARY | 2025-05-26 13:37 | XMS_ITS ---
Author Name [facility] Organization Unknown History of Medication Use Medication Directions Dispensed Refills Start Date End Date Stat oseltamivir (TAMIFLU) 75 MG capsule Take 1 capsule (75 mg total) by mouth 2 (two) times a day. 07/09/2023 07/15/2023 active proMETHAZINE-dextrome thorphan (proMETHAZINE-DM) 6.25-15 MG/5ML syrup Take 5 mL by mouth nightly as needed for cough. 07/09/2023 active Cyanocobalamin (B-12 Compliance Injection) 1000 MCG/ML Kit B-12 Compliance acti ve Problems Problem Status Onset Date Problem Type Date of Resoluti on Source Influenza A active EncounterDiagnosisAct CCT Acute cough active EncounterDiagnosisAct CCT Encounters Encounter Type Encounter Reason Primary Diagnosis Location Date Ambulatory Acute cough Acute cough Practice [facility] 07/09/2023 Care Team Organization Name Specialty Phone Email Start Date End [facility] 07/26/2023 [facility] PCP History Card Clerk 07/26/2023 09/21/2024 [facility] PCP,No Primary Care 07/09/2023 09/21/2024 [facility] NO PCP Primary Care 07/09/2023 07/09/2023
--- OUTSIDE RECORDS SUMMARY | 2025-05-26 13:38 | XMS_ITS | Clinical Summary ---
Author Organization [facility] Address [address] [place] [id number] Phone Care Team Providers Care Individual Pension Consultant Name Role Phone Walter Randolph DO Primary Care Provider Allergies No known active allergies Medications cyanocobalamin, vitamin B-12, (B-12 COMPLIANCE) 1,000 mcg/mL Kit B-12 Compliance Acti ve EPINEPHrine 0.3 mg/0.3 mL auto-injector epinephrine 0.3 mg/0.3 mL injection, auto-injector ADMINISTER 0.3 MG IN THE MUSCLE 1 TIME Active cyclobenzaprine (FLEXERIL) 5 MG tablet TAKE 1 TABLET BY MOUTH THREE TIMES DAILY FOR 5 DAYS NEEDED FOR SPASM Active Active Problems Problem Noted Date Diagnosed Date 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 Not on wyatt e 11/21/2022 Are you concerned about learning? Not on file 11/21/2022 No 11/21/2022 No 11/21/2022 Digital Access Answer Date Recorded No 11/29/2022 No 11/29/2022 Reliable internet access at home? Not on file 11/29/2022 Device with a working camera? Not on file Sex and Gender Information Value Date Recorded Sex Assigned at Not on file Legal Sex Male 4:12 PM EDT Gender Identity Not on file Sexual Orientation Not on file Last Filed Vital Signs Vital Sign Reading Time Taken Comments Blood Pressure 158/94 03/24/2024 5:00 PM EDT Pulse 64 03/24/2024 5:00 PM EDT Temperature 36.6 C (97.9 F) 03/24/2024 5:00 PM EDT Respiratory Rate 16 03/24/2024 5:00 PM EDT Oxygen Saturation 95% 03/24/2024 5:0 0 PM EDT Inhaled Oxygen Concentration - - Weight 90.7 kg (200 lb) 11/20/2022 4:45 PM EDT patient reported Height 177.8 cm (5' 10 ) 11/20/2022 4:4 5 PM EDT Body Mass Index 28.7 11/20/2022 4:45 PM EDT Plan of Treatment Health Maintenance Due Date Last Done Comments LIPID PANEL 1952 DEPRESSION SCREENING 1964 HEPATITIS C SCREENING 1970 COLOGUARD 1997 COLONOSCOPY 1997 COLORECTAL CANCER SCREENING 1997 FIT TEST 1997 FOBT 1997 SIGMOIDOSCOPY 1997 VIRTUAL COLONOSCOPY 1997 PNEUMOCOCCAL VACCINES (50+ years) (1 of 1 - PCV) 2002 ZOSTER VACCINES (1 of 2) 2002 BLOOD PRESSURE 09/21/2024 03/24/2024 INFLUENZA VACCINE (#1) 2025 COVID-19 VACCINE (3 - 2024-2 6 season) 2025 09/27/2020, 08/30/2020 RSV VACCINE (1 - 1-dose 75+ series) 11/12/2027 Adult Td,Tdap Booster 10/15/2032 10/15/2022 , 10/13/2002 SMOKING STATUS SCREENING (On ce After 26 Yrs) Completed 03/24/2024 HEPATITIS A VACCINES Aged Out No long er eligible based on patient's age to complete this topic HIB VACCINES Aged Out No longer eligi ble based on patient's age to complete this topic MENINGOCOCCAL VACCINES (ACWY) Aged Out No longer eligible based on patient's age to complete this topic MENINGOCOCCAL VACCINES (B) Aged Out N o longer eligible based on patient's age to complete this topic Medical Devices Not on file Insurance [facility] Care Teams Individual Pension Consultant Relationship Specialty Start Date End Date Walter Randolph DO [address] [facility] [place] [address] PCP - General Family Medicine 11/20/22 Additional Source Comments The information contained in this document represents components of the legal health record. It is not the complete legal health record.[facility]
--- OUTSIDE RECORDS SUMMARY | 2025-05-26 13:38 | XMS_ITS | Clinical Summary ---
Author Organization [facility] Address [address] [place] [address] Care Team Providers Care Tree Trimming Line Technician Name Role Phone Unavailable Primary Care Provider [...] of 2) 2002 COVID-19 Vaccine ( - 2024-2 6 season) 2025 Influenza (#1) 2025 RSV (1 - 1-dose 75+ series) 11/12/2027 Abdominal Aorta Imaging Discontinued HPV Vaccine (No Doses Required) Completed Hep A Aged Out No longer eligi [...]
--- OUTSIDE RECORDS SUMMARY | 2025-05-26 13:38 | XMS_ITS | Clinical Summary ---
Author Organization [facility] Address [address] [place] [address] Care Team Providers Care Bi Consultant Name Role Phone Pcp, No Primary Care [...] 105 07/09/2023 11:50 AM EST Temperature 37.1 C (98.8 F) 07/09/2023 11:50 AM EST Respiratory Rate - - Oxygen Saturation 96% 07/09/2023 11:50 AM EST Inhaled Oxygen Concentration - - Weight 90.7 kg (200 lb) 07/09/2023 11:50 AM EST Height - - Body Mass Index - - Plan of Treatment Health Maintenance Due Date Last Done Comments Advance Care Planning 1950 Hepatitis C Virus Screening 1950 DTaP/Tdap/Td Vaccines (1 - Tdap) 11/12/1971 Colonoscopy 1997 Pneumococcal Vaccines 50+ (1 of 1 - PCV) 2002 Zoster (Shingles) Vaccine (1 of 2) 2002 Influenza Vaccine 02/03/2025 COVID-19 Vaccine ( - 2023-2 5 season) 2025 RSV Vaccine 50 years and old er and Patients (1 - 1-dose 75+ series) 11/12/2027 Hepatitis B Vaccines Aged Out No long er eligible based on patient's age to complete this topic Insurance [facility] Care Teams Bi Consultant Relationship Specialty Start Date End Date Pcp, No PCP - General General Medicine 07/09/23
--- OUTSIDE RECORDS SUMMARY | 2025-05-26 13:38 | XMS_ITS | Clinical Summary ---
Author Organization [facility] Address [address] [address] Phone Care Team Providers Care Ecologist Technician Name Role Phone Ayana Esteves MD Primary Care Provider [phone]- [phone] Allergies No known active allergies Medications cyanocobalamin (VITAMIN B-12) 1000 MCG/ML injection Comments: Filled Date: Nov 23 2011 12:00AM Duration: 60 Active amLODIPine (NORVASC) 2.5 MG tablet TAKE 1 TABLET(2.5 MG) BY MOUTH 1 TIME EACH DAY 30 tablet 11 09/07/2024 Active finasteride (PROSCAR) 5 MG tablet Take 5 mg by mouth 1 (one) time each day 07/10/2024 Active Active Problems Problem Noted Date Diagnosed Date Varicose veins of lower extremity 05/06/2025 Psoriatic arthritis 05/20/2021 Cyst of kidney 05/20/2021 Hypertension 11/22/2020 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 11/21/2020 Hyperparathyroidism 11/21/2020 Microscopic hematuria 11/21/2020 Renal stone 11/21/2020 Resolved Problems Problem Noted Date Diagnosed Date Resolved Date Hematuria, not otherwise specified 11/21/2020 05/19/2022 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 11/21/2020 11/22/2020 Encounters Date Type Department Care Team Description 05/10/2025 9:00 AM EST Office Visit [facility] [address] [phone] Tomas Morejon MD Stage 3b chronic kidney disease (HCC) (Primary Dx); Psoriatic arthritis (HCC); Renal stone; Microscopic hematuria; Hypertension; Secondary hyperparathyroidism (HCC); Cyst of kidney; Analgesic nephropathy 05/10/2025 Orders Only [facility] [address] [phone] Tomas Morejon MD Stage 3b chronic kidney disease (HCC); Renal stone; Psoriatic arthritis (HCC); Hypertension; Cyst of kidney; Analgesic nephropathy from Last 3 Months Family History Medical [...] Sign Reading Time Taken Comments Blood Pressure 142/80 05/10/2025 9:05 AM EST Pulse 65 05/10/2025 9:05 AM EST Temperature - - Respiratory Rate - - Oxygen Saturation 98% 05/10/2025 9:05 AM EST Inhaled Oxygen Concentration - - Weight 91.2 kg (201 lb) 05/10/2025 9:05 AM EST Height 180.3 cm (5' 11 ) 05/10/2024 9:22 AM EST Body Mass Index 28.03 05/10/2024 9:22 AM EST Plan of Treatment Upcoming Encounters Date Type Department Care Team (Late st Contact Info) Description 05/10/2026 9:00 AM EST Office Visit [facility] [address] [phone] Tomas Morejon MD [address] [phone] Health Maintenance Due Date Last Done Comments Pneumococcal Vaccine: 50+ Ye ars (1 of 2 - PCV) 11/12/1971 Colorectal Cancer Screening: Annual FOBT 2001 Colorectal Cancer Screening: Colonoscopy 2001 Colorectal Cancer Screening: Sigmoidoscopy 2001 Influenza Vaccine (#1) 2025 Hepatitis B Vaccine Aged Out No longe r eligible based on patient's age to complete this topic Procedures Procedure Name Priority Date/Time Associated Diagnosis Comments PTH, INTACT Routine 05/04/2025 2:36 PM EDT MAGNESIUM Routine 05/04/2025 2:36 PM EDT PHOSPHATE ( PHOSPHORUS) Routine 05/04/2025 2:36 PM EDT URIC ACID Routine 05/04/2025 2:36 PM EDT VITAMIN D 25 HYDROXY Routine 05/04/2025 2:36 PM EDT PROTEIN / CREATININE RATIO, URINE Routine 05/04/2025 2:36 PM EDT URINALYSIS WITH MICROSCOPIC Routine 05/04/2025 2:36 PM EDT COMPREHENSIVE METABOLIC PANEL Routine 05/04/2025 2:36 PM EDT CBC AND DIFFERENTIAL Routine 05/04/2025 2:36 PM EDT MICROSCOPIC EXAMINATION - DO NOT USE Routine 05/04/2025 2:36 PM EDT from Last 3 Months Results * Microscopic Examination (05/04/2025 2:36 PM EDT) WBC, Urine None seen 0 - 5 /hpf [facility] RBC, Urine None seen 0 - 2 /hpf [facility] Squamous Epithelial, Urine None seen 0 - 10 /hpf [facility] Casts None seen None seen /lpf [facility] Bacteria, Urine None seen None seen/Few [facility] 05/04/2025 2:36 PM EDT 05/04/2025 Tomas Morejon MD LAB MICROBIOLOGY - GENERAL OR DERABLES Final Result Performing Organization Address City/[facility]/ZIP Co de Phone Number [facility] [address] [place] [address] * (ABNORMAL) Protein, Total, Random Urine w/Creatinine (Protein/Creat Ratio) (05/04/2025 2:36 PM EDT) Creatinine, Ur 67.8 Not Estab. mg/dL [facility] Protein, Ur 13.9 Not Estab. mg/dL [facility] Urine Protein/Creati nine Ratio 205(H) 0 - 200 mg/g creat [facility] 05/04/2025 2:36 PM EDT 05/04/2025 Tomas Morejon MD LAB URINE ORDERABLES Final Re sult Performing Organization Address City/[facility]/ZIP Co de Phone Number [facility] [address] [place] [address] * Vitamin D 25 Hydroxy (05/04/2025 2:36 PM EDT) Vitamin D, 25-OH, Total 32.7 30.0 - 100.0 ng/mL [facility] Comment: Vitamin D deficiency has been defined by the [place] of [employer] and an Endocrine Society practice guideline as a level of serum 25-OH vitamin D less than 20 ng/mL (1,2). The Endocrine Society went on to further define vitamin D insufficiency as a level between 21 and 29 ng/mL (2). 1. IOM ([place] of [employer]). 2010. Dietary reference intakes for calcium and D. [place]: The National Academies Press. 2. Ioana DE PAZ, Cira MATUTE, Rell OLIVA, et al. Evaluation, treatment, and prevention of vitamin D deficiency: an Endocrine Society clinical practice guideline. JCEM. 2010; 96(7):1911-30. 05/04/2025 2:36 PM EDT 05/04/2025 Tomas Morejon MD LAB BLOOD ORDERABLES Final Re sult [facility] [address] [place] [address] * Urinalysis with microscopic (05/04/2025 2:36 PM EDT) Specific [place], Urine 1.015 1.005 - 1.030 [facility] pH Urine 6.0 5.0 - 7.5 [facility] Color, Urine Yellow Yellow [facility] Appearance Urine Clear Clear [facility] [phone] WBC Esterase Urine Negative Negative [facility] Protein, Ur Trace Negative/Tra ce [facility] Glucose, Ur Negative Negative [facility] Ketones, Urine Negative Negative [facility] Blood Urine Negative Negative [facility] [phone] Bilirubin Urine Negative Negative [facility] [phone] Urobilinogen Urine 0.2 0.2 - 1.0 mg/dL [facility] Nitrite, Urine Negative Negative [facility] Microscopic Examination Comment [facility] Comment:Microscopic follows if indicated. Other Microsc. Observations See below: [facility] Comment:Microscopic was ric cated and was performed. 05/04/2025 2:36 PM EDT 05/04/2025 us Tomas Morejon MD LAB URINE ORDERABLES Final Re sult [facility] [address] [place] [address] * CBC and Differential (05/04/2025 2:36 PM EDT) [facility] Signature WBC 6.1 3.4 - 10.8 x10E3/uL [facility] RBC 4.84 4.14 - 5.80 x10E6/uL [facility] Hemoglobin 13.9 13.0 - 17.7 g/dL [facility] Hematocrit 43.4 37.5 - 51.0 % [facility] MCV 90 79 - 97 fL [facility] MCH 28.7 26.6 - 33.0 pg [facility] MCHC 32.0 31.5 - 35.7 g/dL [facility] RDW 12.3 11.6 - 15.4 % [facility] Platelets 216 150 - 450 x10E3/uL [facility] Neutrophils Relative 66 Not Estab. % [facility] Lymphocytes Relative 21 Not Estab. % [facility] Monocytes 7 Not Estab. % [facility] Eosinophils Relative 5 Not Estab. % [facility] Basophils Relative 1 Not Estab. % [facility] Neutrophils Absolute 4.1 1.4 - 7.0 x10E3/uL [facility] Lymphocytes Absolute 1.3 0.7 - 3.1 x10E3/uL [facility] Monocytes Absolute 0.4 0.1 - 0.9 x10E3/uL [facility] Eosinophils Absolute 0.3 0.0 - 0.4 x10E3/uL [facility] Basophils Absolute 0.0 0.0 - 0.2 x10E3/uL [facility] Immature Granulocytes 0 Not Estab. % [facility] Immature Grans (Absolute) 0.0 0.0 - 0.1 x10E3/uL [facility] 05/04/2025 2:36 PM EDT 05/04/2025 us Tomas Morejon MD LAB BLOOD ORDERABLES Final Re sult Performing Organization Address City/[facility]/ZIP Co de Phone Number [facility] [address] [place] [address] * Uric Acid (05/04/2025 2:36 PM EDT) Uric Acid 7.7 3.8 - 8.4 mg/dL [facility] Comment:Therapeutic target f or gout patients: <6.0 05/04/2025 2:36 PM EDT 05/04/2025 Tomas Morejon MD LAB BLOOD ORDERABLES Final Re sult Performing Organization Address [facility]/ZIP Co de Phone Number [facility] [address] [place] [address] * Phosphorus (05/04/2025 2:36 PM EDT) Phosphorus 3.1 2.8 - 4.1 mg/dL [facility] 05/04/2025 2:36 PM EDT 05/04/2025 us Tomas Morejon MD LAB BLOOD ORDERABLES Final Re sult Performing Organization Address City/[facility]/ZIP Co de Phone Number [facility] [address] [place] [address] * (ABNORMAL) PTH, Intact (05/04/2025 2:36 PM EDT) Pathologist [facility] PTH 69(H) 15 - 65 pg/mL [facility] 05/04/2025 2:36 PM EDT 05/04/2025 Tomas Morejon MD LAB BLOOD ORDERABLES Final Re sult Performing Organization Address City/[facility]/ZIP Co de Phone Number [facility] [address] [place] [address] * Magnesium (05/04/2025 2:36 PM EDT) [facility] Magnesium 2.0 1.6 - 2.3 mg/dL [facility] 05/04/2025 2:36 PM EDT 05/04/2025 Tomas Morejon MD LAB BLOOD ORDERABLES Final Re sult Performing Organization Address City/[facility]/ZIP Co de Phone Number [facility] [address] [place] [address] * (ABNORMAL) Comprehensive Metabolic Panel (05/04/2025 2:36 PM EDT) [facility] Glucose 97 70 - 99 mg/dL [facility] BUN 23 8 - 27 mg/dL [facility] Creatinine 1.48(H) 0.76 - 1.27 mg/dL [facility] eGFR CKD-EPI CR 2020 50(L) >59 mL/min/1.7 3 [facility] BUN/Creatinine Ratio 16 10 - 24 [facility] Sodium 141 134 - 144 mmol/L [facility] Potassium 4.9 3.5 - 5.2 mmol/L [facility] Chloride 103 96 - 106 mmol/L [facility] Bicarbonate (CO2) 22 20 - 29 mmol/L [facility] Calcium 10.2 8.6 - 10.2 mg/dL [facility] Total Protein 7.1 6.0 - 8.5 g/dL [facility] Albumin 4.3 3.8 - 4.8 g/dL [facility] Globulin 2.8 1.5 - 4.5 g/dL [facility] Total Bilirubin 0.4 0.0 - 1.2 mg/dL [facility] Alkaline Phosphatase 96 47 - 123 IU/L [facility] AST (SGOT) 21 0 - 40 IU/L [facility] ALT (SGPT) 11 0 - 44 IU/L [facility] 05/04/2025 2:36 PM EDT 05/04/2025 us Tomas Morejon MD LAB BLOOD ORDERABLES Final Re sult [facility] [address] [place] [address] from Last 3 Months Insurance [facility] [place] [id number] [facility] Care Teams Ecologist Technician Relationship Specialty Start Date End Date Ayana Esteves MD [address] [place] [phone] PCP - General Internal Medicine 05/10/25
== END 2025-05-26 13:59 | disposition home or self-care (01) ==
LOC: HO.HUSH 13:21
PROVIDERS: PCP Family Medicine; Visit Provider Urology
DX: R97.20 Elevated prostate specific antigen [PSA] (principal); N40.1 Benign prostatic hyperplasia with lower urinary tract symptoms; N13.8 Other obstructive and reflux uropathy; N32.89 Other specified disorders of bladder; N52.01 Erectile dysfunction due to arterial insufficiency
CPT/HCPCS: 99214

== ENCOUNTER → 2025-05-26 13:20 | Outpatient (BNVA) | payer BC, SELFPAY | PROVIDERS: PCP Family Medicine; Visit Provider Urology | DX: N40.1 Benign prostatic hyperplasia with lower urinary tract symptoms (principal) | CPT/HCPCS: 51798 ==